=== PATIENT | female | born 1995 | race American Indian/Alaskan Native ===

== ENCOUNTER 2022-03-03 11:28 | Emergency (ER) | payer MEDICAID | END 2022-03-03 14:28 | disposition home or self-care (01) | LOC: JP.ED 11:28 | DX: S82.51XA Displaced fracture of medial malleolus of right tibia, initial encounter for closed fracture (principal); F17.210 Nicotine dependence, cigarettes, uncomplicated; X50.1XXA Overexertion from prolonged static or awkward postures, initial encounter; Z79.899 Other long term (current) drug therapy; Z86.16 Personal history of COVID-19 | CPT/HCPCS: 73610-RT; 99283 ==

== ENCOUNTER 2022-12-04 02:55 | Emergency (ER) | payer MEDICAID ==
[2022-12-04] MEDS ORDERED: LORazepam 1 MG Tab PO ONE (03:42)
[2022-12-04 04:33] LABS: CORONAVIRUS COVID-19 NAA NEGATIVE (NEGATIVE)
[2022-12-04] MEDS ORDERED: Potassium Chloride 20 MEQ Tab.ER PO ONE (04:49)
[2022-12-04] MEDS ORDERED: Potassium Chloride 20 MEQ Tab.ER ONE (07:27)
== END 2022-12-04 12:01 | disposition other institution (70) ==
LOC: JP.ED 02:55
DX: F32.A Depression, unspecified (principal); F15.10 Other stimulant abuse, uncomplicated; E03.9 Hypothyroidism, unspecified; F19.10 Other psychoactive substance abuse, uncomplicated; E66.01 Morbid (severe) obesity due to excess calories; Z68.41 Body mass index [BMI] 40.0-44.9, adult; Z63.4 Disappearance and death of family member; Z86.16 Personal history of COVID-19; Z20.822 Contact with and (suspected) exposure to COVID-19
CPT/HCPCS: 0241U; 36415; 80048; 80143; 80179; 80305; 80307; 81025; 84439; 84443; 85025; 99284; 99285; A9270